=== PATIENT | female | born 1990 | race Caucasian/White ===

== ENCOUNTER 2017-06-02 10:28 | Emergency (ER) | payer OTHER ==
[~2017-06-02] VITALS: Ht 170.2 cm; Wt 61.2 kg
[2017-06-02 10:31] VITALS: BP 128/80
[2017-06-02] MEDS ORDERED: ACCUNEB SO1.25 MG/1 INH (10:44)
[2017-06-02] MEDS ORDERED: CLONAZEPAM 1 MG1 M1 PO (10:44)
[2017-06-02] MEDS ORDERED: ADVAIR HFA 230M12 GM INH (10:44)
[2017-06-02] MEDS ORDERED: CLARITIN10 MG PO (10:45)
[2017-06-02] MEDS ORDERED: LEXAPRO 10 MG T10 M2 PO (10:46)
[2017-06-02] MEDS ORDERED: FLONASE 0.05%50 MCG NASAL (11:40)
[2017-06-02] MEDS ORDERED: ZYRTEC10 MG PO (11:40)
[2017-06-02] MEDS ORDERED: PREDNISONE50 MG PO (11:40)
== END 2017-06-02 13:27 | disposition home or self-care (01) ==
LOC: ER 10:28
DX: R22.0 Localized swelling, mass and lump, head (principal); T78.49XA Other allergy, initial encounter; F17.210 Nicotine dependence, cigarettes, uncomplicated; Z88.6 Allergy status to analgesic agent; Z88.0 Allergy status to penicillin; X58.XXXA Exposure to other specified factors, initial encounter

== ENCOUNTER 2017-09-03 22:13 | Emergency (ER) | payer OTHER ==
[~2017-09-03] VITALS: Ht 170.2 cm; Wt 68.0 kg
[~2017-09-03 22:13] MED LIST: ACCUNEB SO1.25 MG/1 INH; ADVAIR HFA 230M12 GM INH; CLARITIN10 MG PO; CLONAZEPAM 1 MG1 M1 PO; FLONASE 0.05%50 MCG NASAL; LEXAPRO 10 MG T10 M2 PO; PREDNISONE50 MG PO; ZYRTEC10 MG PO
[2017-09-03 22:32] LABS: URINE BILIRUBIN NEGATIVE (Negative); URINE BLOOD NEGATIVE (Negative); URINE CLARITY CLEAR; URINE COLOR YELLOW; URINE GLUCOSE-RANDOM* NEGATIVE (Negative); URINE KETONES NEGATIVE (Negative); URINE LEUKOCYTES-REFLEX NEGATIVE (Negative); URINE PROTEIN (DIPSTICK) NEGATIVE (Negative); URINE SPECIFIC GRAVITY 1.025 (1.005-1.035); URINE UROBILINOGEN 0.2 E.U./dl (0.2-1.0)
[2017-09-03 22:33] LABS: URINE NITRITE-REFLEX POSITIVE (Negative)
[2017-09-03 22:46] LABS: SQUAMOUS 4-10 Moderate /LPF (0-3)
[2017-09-03 22:47] LABS: BACTERIA-REFLEX >30 Many /HPF (None Seen); CASTS None Seen /LPF (None Seen); CRYSTALS None Seen /LPF (None Seen); MUCUS 0-3 Light strn/LPF (None Seen); URINE RBC 0-2 Rare /HPF (0-2); URINE WBC-REFLEX 0-5 Rare /HPF (0-5)
[2017-09-03 23:24] LABS: ABSOLUTE NEUTROPHILS 3.1 thou/uL (1.4-8.2); BASOPHILS 0.5 % (0.0-2.0); EOSINOPHILS 0.1 % (0.0-3.0); HEMATOCRIT 41.4 % (37.0-47.0); HEMOGLOBIN 14.4 gm/dL (12.0-15.0); LYMPHOCYTES 13.6 % (24.0-44.0); MCH 30.2 pg (26.0-34.0); MCHC 34.9 g/dL (28.0-37.0); MCV 86.7 fL (80.0-100.0); PLATELET COUNT 153 thou/uL (150-400); POLYS 78.8 % (36.0-66.0); RBC 4.77 mil/uL (4.20-5.00); RDW 12.5 % (10.5-14.5); WBC 3.9 thou/uL (4.0-11.0)
[2017-09-03 23:26] LABS: CALCIUM 9.5 mg/dL (8.5-10.1); CREATININE 0.8 mg/dL (0.6-1.0); POTASSIUM 3.9 mmol/L (3.5-5.1)
[2017-09-03 23:32] LABS: ALBUMIN 4.5 g/dL (3.4-5.0); TOTAL BILIRUBIN 0.5 mg/dL (<0.1-1.0); TOTAL PROTEIN 7.9 g/dL (6.4-8.2)
[2017-09-04] MEDS ORDERED: PEPCID20 MG PO (01:16)
[2017-09-04] MEDS ORDERED: PREDNISONE 20 M20 MG PO (01:16)
[2017-09-04 02:18] VITALS: BP 91/49
[2017-09-06 05:08] LABS: LYME ANTIBODY SCREEN* <0.91 ISR (0.00-0.90)
== END 2017-09-04 02:43 | disposition home or self-care (01) ==
LOC: ER 22:13
PROVIDERS: Emergency Medicine
DX: O26.891 Other specified pregnancy related conditions, first trimester (principal); J45.909 Unspecified asthma, uncomplicated; L50.9 Urticaria, unspecified; M79.1 Myalgia; R11.0 Nausea; F17.210 Nicotine dependence, cigarettes, uncomplicated; Z3A.00 Weeks of gestation of pregnancy not specified; Z88.0 Allergy status to penicillin; Z88.6 Allergy status to analgesic agent